=== PATIENT | female | born 1955 | race Hispanic/Latino ===

== ENCOUNTER 2017-04-28 05:43 | Inpatient (IN) | payer OTHER ==
[~2017-04-28] VITALS: Ht 162.6 cm; Wt 87.6 kg
[~2017-04-28 05:43] MED LIST: CYCLOBENZAPRINE5 MG PO; DEXILANT30 MG PO
[2017-04-28] MEDS ORDERED: ONDANSETRON HCL INJ 2 MG/ML VIAL IV STA (06:21)
[2017-04-28] MEDS ORDERED: SODIUM CHLORIDE 0.9% 1000ML 1,000 ML IV STA (06:21)
[2017-04-28] MEDS ORDERED: PANTOPRAZOLE 40 MG 10ML VIAL IV STA (06:21)
[2017-04-28] MEDS ORDERED: MORPHINE SULFATE 2 MG/ML SYR IV STA (06:49)
[2017-04-28] MEDS ORDERED: MORPHINE SULFATE 5 MG/ML VIAL IV ONE (07:00)
[2017-04-28 07:16] LABS: BASOPHILS % 0.4 % (0.0-1.0); EOSINOPHILS # (AUTO) 0.1 (0.0-0.4); EOSINOPHILS % 1.2 % (0.0-6.0); HEMATOCRIT 40.5 % (34.2-44.1); HEMOGLOBIN 14.3 g/dL (12.0-16.0); LYMPHOCYTES % 12.1 % (18.0-39.1); MEAN CORPUSCULAR HEMOGLOBIN 28.5 pg (28-32); MEAN CORPUSCULAR HGB CONC 35.3 g/dL (31-35); MEAN CORPUSCULAR VOLUME 80.8 fL (81-99); MONOCYTES # (AUTO) 0.5 (0.2-0.8); MONOCYTES % 5.5 % (4.4-11.3); NEUTROPHILS # (AUTO) 6.5 (2.1-6.9); NEUTROPHILS % 80.6 % (38.7-80.0); PLATELET COUNT 243 x10e3/uL (140-360); RED BLOOD COUNT 5.01 x10e6/uL (3.6-5.1); RED CELL DISTRIBUTION WIDTH 12.6 % (11.7-14.4)
[2017-04-28 07:19] LABS: INR 0.91; PARTIAL THROMBOPLASTIN TIME 26.5 seconds (23.8-35.5); PROTHROMBIN TIME 12.7 seconds (11.9-14.5)
[2017-04-28 07:27] LABS: ALANINE AMINOTRANSFERASE 26 IU/L (0-55); ALBUMIN 4.1 g/dL (3.5-5.0); ALKALINE PHOSPHATASE 95 IU/L (40-150); AMYLASE 16 U/L (25-125); ANION GAP 16.5 mmol/L (8-16); BLOOD UREA NITROGEN 9 mg/dL (7-26); BUN/CREATININE RATIO 12 (6-25); CARBON DIOXIDE 20 mmol/L (22-29); CHLORIDE 103 mmol/L (98-107); CREATINE KINASE 40 IU/L (29-168); CREATININE, SERUM 0.74 mg/dL (0.57-1.11); EST GLOMERULAR FILTRATION RATE > 60 ML/MIN (60-); GLUCOSE 117 mg/dL (74-118); LIPASE 11 U/L (8-78); POTASSIUM 3.5 mmol/L (3.5-5.1); SODIUM 136 mmol/L (136-145)
[2017-04-28 07:33] LABS: TROPONIN I < 0.001 ng/mL (0-0.300)
[2017-04-28 08:02] LABS: BILIRUBIN,URINE NEGATIVE (NEGATIVE); KETONES,URINE 1+ (NEGATIVE); LEUKOCYTE ESTERASE ,URINE NEGATIVE (NEGATIVE); NITRITE,URINE NEGATIVE (NEGATIVE); PROTEIN,URINE DIPSTICK NEGATIVE (NEGATIVE); URINE UROBILINOGEN 0.2 mg/dL (0.2 - 1)
[2017-04-28 08:04] LABS: CLARITY,URINE CLEAR (CLEAR); COLOR,URINE YELLOW (YELLOW)
[2017-04-28 08:17] LABS: BACTERIA,URINE RARE /HPF; EPITHELIAL CELLS,URINE FEW /LPF; RBC,URINE 0-5 /HPF (0-5); WBC,URINE (MAN) 0-5 /HPF (0-5)
--- NOTE | 2017-04-28 09:02 | Diagnostic Imaging Report ---
PROCEDURE: CT ABDOMEN AND PELVIS WITH CONTRAST TECHNIQUE: The abdomen and pelvis were scanned utilizing a multidetector helical scanner from the diaphragm to the lesser trochanter after the IV administration of 100 cc Isovue 370. Coronal and sagittal multiplanar reformations were obtained. COMPARISON: CT abdomen and pelvis 07/24/2014. INDICATIONS: ABDOMEN PAIN, VOMITING FINDINGS: LOWER THORAX: Subsegmental atelectasis in the dependent portions of the lower lobes.. HEPATOBILIARY: No focal hepatic lesion or intrahepatic biliary ductal dilatation. The gallbladder has been removed. SPLEEN: No splenomegaly. Small splenule adjacent to the posterior splenic margin. PANCREAS: No focal masses or ductal dilatation. ADRENALS: No adrenal nodules. KIDNEYS/URETERS: No hydronephrosis, stones, or solid mass lesions. PELVIC ORGANS/BLADDER: The urinary bladder is unremarkable. The uterus is not identified and has presumably been resected. No adnexal mass. PERITONEUM / RETROPERITONEUM: Small amount of free pelvic fluid versus a small cyst, average attenuation 19 Hounsfield units in the presacral space. This finding is unchanged compared to 07/24/2014. No pneumoperitoneum. LYMPH NODES: No pelvic sidewall, retroperitoneal, or mesenteric lymphadenopathy. Multiple metallic clips along the pelvic sidewalls and lower retroperitoneum may relate to lymph node dissection. VESSELS: The abdominal aorta, major branch vessels, and iliac arterial systems are patent without aneurysmal dilatation. Portal vein, splenic vein, and central superior mesenteric vein are patent. GI TRACT: The large bowel is mostly collapsed and suboptimally evaluated. No gross distention or wall thickening. The appendix is not identified and may have been resected. There is mild wall thickening and mucosal enhancement of the terminal ileum similar to that noted on prior examination. There are multiple dilated loops of small bowel predominately in the lower abdomen to a maximum caliber of 3.5 cm, with a transition point in the ileum at the level of a 1.5 cm apparent intraluminal metallic foreign body seen on series 2 image 71, and coronal image 44. No pneumoperitoneum. BONES AND SOFT TISSUES: No focal soft tissue abnormalities with the exception of postsurgical changes of the lower anterior abdominal wall. Multilevel degenerative disc disease and degenerative facet arthropathy of the lumbar spine. IMPRESSION: Findings suggest partial small bowel obstruction related to an apparent intraluminal metallic foreign body at the level of the distal ileum. No adi pneumoperitoneum. Terminal ileitis is similar to that noted on the comparison examination from 07/24/2014 Dictated by: Robert Norris M.D. on 04/28/2017 at 9:09 Electronically approved by: Roebrt Norris M.D. on 04/28/2017 at 9:09
[2017-04-28] MEDS ORDERED: ONDANSETRON HCL INJ 2 MG/ML VIAL IV PRN (10:00)
[2017-04-28] MEDS ORDERED: MORPHINE SULFATE 2 MG/ML SYR IV PRN (10:00)
[2017-04-28] MEDS ORDERED: LEVOFLOXACIN 500MG/D5W 100ML IV SCH (10:00)
[2017-04-28] MEDS: D5.45%NS/KCL 20MEQ 1,000 ML IV SCH ×3 (10:34→21:51)
[2017-04-28] MEDS: LEVOFLOXACIN 500MG/D5W 100ML 100 ML IV SCH (10:34)
[2017-04-28] MEDS ORDERED: METRONIDAZOLE 500MG/NS 100ML IV SCH (12:00)
[2017-04-28] MEDS: METRONIDAZOLE 500MG/NS 100ML 100 ML IV SCH ×2 (12:14→17:09)
--- NOTE | 2017-04-28 14:18 | Diagnostic Imaging Report ---
PROCEDURE:ABDOMEN COMP INCL UPR OR DECUB INDICATION:Abdominal pain COMPARISON:CT abdomen and pelvis with contrast earlier 04/28/2017. FINDINGS: Dilated loops of small bowel, air-filled, are identified in the mid abdomen measuring up to 3.5 cm. Several air-fluid levels are noted on the upright radiograph. No free air under the diaphragm. Interval placement of an enteric tube, with the tip projecting over the proximal gastric body. 1.7 cm linear metallic density projecting to the right side of the lower sacrum likely represents the intraluminal metallic foreign body described on the comparison CT. Multiple pelvic and retroperitoneal surgical clips likely related to lymph node dissection. Excreted intravenous contrast material opacifies the upper collecting systems and urinary bladder. Regional skeletal structures are intact. CONCLUSION: Interval placement of an enteric tube, with the tip projecting over the expected region of the proximal gastric body. Dilated loops of small bowel with suspected intraluminal metallic foreign body in the ileum, seen to better advantage and further described on comparison CT from earlier 04/28/2017. No pneumoperitoneum. Dictated by: Robert Norris M.D. on 04/28/2017 at 14:26 Electronically approved by: Robert Norris M.D. on 04/28/2017 at 14:26
[2017-04-28 14:53] VITALS: BP 132/60
[2017-04-28] MEDS ORDERED: SODIUM CHLORIDE 0.9% 50ML 50 ML ONE (15:25)
[2017-04-28 15:34] VITALS: BP 132/60
[2017-04-28 16:32] VITALS: BP 107/51
[2017-04-28] MEDS: PANTOPRAZOLE 40 MG 10ML VIAL IV SCH (17:08)
[2017-04-28] MEDS ORDERED: MORPHINE SULFATE 5 MG/ML VIAL IV PRN (18:45)
[2017-04-28 20:00] VITALS: BP 115/58
[2017-04-29] VITALS: BP 134/63
[2017-04-29] MEDS: METRONIDAZOLE 500MG/NS 100ML 100 ML IV SCH ×4 (00:20→17:21)
[2017-04-29] MEDS: D5.45%NS/KCL 20MEQ 1,000 ML IV SCH ×3 (01:57→19:57)
[2017-04-29 04:00] VITALS: BP 137/63
[2017-04-29 07:08] LABS: BASOPHILS # (AUTO) 0.1 (0.0-0.1); BASOPHILS % 0.5 % (0.0-1.0); EOSINOPHILS # (AUTO) 0.1 (0.0-0.4); EOSINOPHILS % 1.4 % (0.0-6.0); HEMATOCRIT 43.7 % (34.2-44.1); HEMOGLOBIN 14.3 g/dL (12.0-16.0); LYMPHOCYTES # (AUTO) 0.8 (1.0-3.2); LYMPHOCYTES % 8.3 % (18.0-39.1); MEAN CORPUSCULAR HEMOGLOBIN 28.5 pg (28-32); MEAN CORPUSCULAR HGB CONC 32.7 g/dL (31-35); MEAN CORPUSCULAR VOLUME 87.2 fL (81-99); MONOCYTES # (AUTO) 0.5 (0.2-0.8); NEUTROPHILS # (AUTO) 8.2 (2.1-6.9); NEUTROPHILS % 84.4 % (38.7-80.0); PLATELET COUNT 264 x10e3/uL (140-360); RED BLOOD COUNT 5.01 x10e6/uL (3.6-5.1); RED CELL DISTRIBUTION WIDTH 12.7 % (11.7-14.4)
[2017-04-29 07:44] LABS: ANION GAP 15.1 mmol/L (8-16); BLOOD UREA NITROGEN < 5 mg/dL (7-26); BUN/CREATININE RATIO 8 (6-25); CALCIUM 9.4 mg/dL (8.4-10.2); CARBON DIOXIDE 19 mmol/L (22-29); CHLORIDE 107 mmol/L (98-107); CREATININE, SERUM 0.65 mg/dL (0.57-1.11); EST GLOMERULAR FILTRATION RATE > 60 ML/MIN (60-); GLUCOSE 109 mg/dL (74-118); POTASSIUM 4.1 mmol/L (3.5-5.1); SODIUM 137 mmol/L (136-145)
--- NOTE | 2017-04-29 08:08 | Diagnostic Imaging Report ---
PROCEDURE:ABDOMEN COMP INCL UPR OR DECUB TECHNIQUE: INDICATION: COMPARISON:None. FINDINGS: Enteric feeding catheter is present with the tip projecting over the expected region of the gastric fundus. Surgical clips are present in the right upper quadrant, mid abdomen, and pelvis. Air is present in the colon and rectum. No air-fluid levels or pneumoperitoneum. No abnormal calcifications. Degenerative changes of the lumbar spine. CONCLUSION: No acute radiographic abnormality. Dictated by: Fabián Dominguez M.D. on 04/29/2017 at 8:16 Electronically approved by: Fabián Dominguez M.D. on 04/29/2017 at 8:16
[2017-04-29 08:16] VITALS: BP 140/63
[2017-04-29] MEDS: PANTOPRAZOLE 40 MG 10ML VIAL IV SCH ×2 (08:32→17:21)
[2017-04-29] MEDS ORDERED: ACETAMINOPHEN 1000 MG/100 ML IV PRN (08:45)
[2017-04-29] MEDS: LEVOFLOXACIN 500MG/D5W 100ML 100 ML IV SCH (10:58)
--- NOTE | 2017-04-29 11:26 | Diagnostic Imaging Report ---
PROCEDURE:X-RAY ABDOMEN - KUB COMPARISON:Abdomen complete 04/29/2017 at 0624 hrs.. INDICATIONS:SMALL BOWEL OBSTRUCTION, COMPARE TO MORNING KUB FINDINGS: There is a non-obstructed bowel-gas pattern. Air and retained feces are present in the colon and rectum. Enteric feeding catheter with the tip projecting over the expected region of the gastric fundus. Surgical clips. There are no calcifications projected over the renal shadows, expected course of the ureters or bladder. There are no acute osseous abnormalities. The lung bases are clear. CONCLUSION: No acute radiographic abnormality. Dictated by: Fabián Dominguez M.D. on 04/29/2017 at 11:33 Electronically approved by: Fabián Dominguez M.D. on 04/29/2017 at 11:33
[2017-04-29 12:15] VITALS: BP 103/51
[2017-04-29 16:30] VITALS: BP 113/51
[2017-04-29 20:00] VITALS: BP 108/48
[2017-04-30] VITALS: BP 109/53
[2017-04-30] MEDS: D5.45%NS/KCL 20MEQ 1,000 ML IV SCH ×2 (00:15→17:30)
[2017-04-30] MEDS: METRONIDAZOLE 500MG/NS 100ML 100 ML IV SCH ×5 (00:15→23:01)
[2017-04-30 04:00] VITALS: BP 113/55
[2017-04-30 07:01] LABS: BASOPHILS % 0.6 % (0.0-1.0); EOSINOPHILS # (AUTO) 0.2 (0.0-0.4); EOSINOPHILS % 4.5 % (0.0-6.0); HEMATOCRIT 36.3 % (34.2-44.1); HEMOGLOBIN 12.1 g/dL (12.0-16.0); LYMPHOCYTES # (AUTO) 0.9 (1.0-3.2); LYMPHOCYTES % 20.1 % (18.0-39.1); MEAN CORPUSCULAR HEMOGLOBIN 28.4 pg (28-32); MEAN CORPUSCULAR HGB CONC 33.3 g/dL (31-35); MEAN CORPUSCULAR VOLUME 85.2 fL (81-99); MONOCYTES # (AUTO) 0.4 (0.2-0.8); MONOCYTES % 8.1 % (4.4-11.3); NEUTROPHILS # (AUTO) 3.1 (2.1-6.9); NEUTROPHILS % 66.3 % (38.7-80.0); PLATELET COUNT 259 x10e3/uL (140-360); RED BLOOD COUNT 4.26 x10e6/uL (3.6-5.1); RED CELL DISTRIBUTION WIDTH 12.7 % (11.7-14.4)
[2017-04-30 07:19] LABS: ANION GAP 11.7 mmol/L (8-16); BLOOD UREA NITROGEN < 5 mg/dL (7-26); CALCIUM 9.1 mg/dL (8.4-10.2); CARBON DIOXIDE 23 mmol/L (22-29); CHLORIDE 109 mmol/L (98-107); EST GLOMERULAR FILTRATION RATE > 60 ML/MIN (60-); GLUCOSE 95 mg/dL (74-118); POTASSIUM 3.7 mmol/L (3.5-5.1); SODIUM 140 mmol/L (136-145)
[2017-04-30 07:20] LABS: BUN/CREATININE RATIO 7 (6-25)
[2017-04-30] MEDS: PANTOPRAZOLE 40 MG 10ML VIAL IV SCH ×2 (08:01→16:45)
--- NOTE | 2017-04-30 08:48 | Diagnostic Imaging Report ---
PROCEDURE:X-RAY ABDOMEN - KUB COMPARISON:None. INDICATIONS:OBSTRUCTION-FOLLOW UP FINDINGS: There are no dilated loops of bowel to suggest obstruction. There are no masses or abnormal calcifications. Multiple surgical clips present within the abdomen and pelvis. There is no evidence of free air. No acute osseous abnormalities are present. CONCLUSION: No acute abdominal abnormality. Ronen Dennis D.O. Dictated by: Ronen Dennis D.O. on 04/30/2017 at 8:55 Electronically approved by: Ronen Dennis D.O. on 04/30/2017 at 8:55
[2017-04-30 08:49] VITALS: BP 116/56
[2017-04-30] MEDS: LEVOFLOXACIN 500MG/D5W 100ML 100 ML IV SCH (09:14)
[2017-04-30 12:52] VITALS: BP 113/64
[2017-04-30 16:15] VITALS: BP 114/53
[2017-04-30 20:00] VITALS: BP 125/56
[2017-05-01] VITALS: BP 123/63
[2017-05-01] MEDS: D5.45%NS/KCL 20MEQ 1,000 ML IV SCH (01:57)
[2017-05-01 04:00] VITALS: BP 99/55
[2017-05-01] MEDS: METRONIDAZOLE 500MG/NS 100ML 100 ML IV SCH ×2 (05:17→12:15)
[2017-05-01] MEDS: PANTOPRAZOLE 40 MG 10ML VIAL IV SCH (09:00)
[2017-05-01 09:23] VITALS: BP 92/45
[2017-05-01] MEDS: LEVOFLOXACIN 500MG/D5W 100ML 100 ML IV SCH (10:15)
[2017-05-01 13:13] VITALS: BP 125/62
[2017-05-01] MEDS ORDERED: SENNA LAX8.6 MG PO (16:28)
[2017-05-01] MEDS ORDERED: ZOFRAN ODT4 MG SL (16:28)
[2017-05-01] MEDS ORDERED: OMEPRAZOLE40 MG PO (16:29)
--- NOTE | 2017-05-02 19:36 | Discharge Summary ---
PRIMARY CARE PHYSICIAN: Dr. Tamara Adames. CONSULTANTS: Dr. Jasiel Harris and Dr. Jorden Rodriguez. FINAL DIAGNOSES: 1. Small bowel obstruction most likely secondary to scar in the abdomen with adhesion. 2. Baseline history of hysterectomy, appendectomy and cholecystectomy. SUMMARY: Patient is a 61-year-old female with recurrent abdominal pain since January. She came in and shown to have ileus and partial small bowel obstruction. The area is at the level of the terminal ileum. Patient did have nasogastric tube. The NG tube has since been removed. KUB repeated x-ray showed no bowel obstruction at this time. She tolerated a full liquid diet. Patient is stable. Advance to soft solid food today. If the patient is stable, she may be able to go home. She will go home with Senna 1 tablet twice a day and omeprazole 40 mg q.a.m. along with Zofran ODT 4 mg sublingual as needed. The patient is instructed to follow up with Dr. Jasiel Harris and Dr. Jorden Rodriguez as an outpatient. The patient will most likely need a diagnostic laparoscopy with lysis of adhesions in the future. Patient is otherwise stable and discharged home today. Job#: [id number]
== END 2017-05-01 16:40 | disposition home or self-care (01) | DRG 390 ==
LOC: ER 05:43 → ERHOLD 10:10 → UNDOADMIN 10:10 → ERHOLD 10:11 → MED/SURG 13:48
PROVIDERS: ADMIT Internal Medicine; ATTEND Internal Medicine
DX: K56.50 Intestinal adhesions [bands], unspecified as to partial versus complete obstruction (principal); R13.10 Dysphagia, unspecified; K56.7 Ileus, unspecified; E66.9 Obesity, unspecified; Z68.33 Body mass index [BMI] 33.0-33.9, adult; Z90.49 Acquired absence of other specified parts of digestive tract; Z90.710 Acquired absence of both cervix and uterus; K21.9 Gastro-esophageal reflux disease without esophagitis
CPT/HCPCS: 36415; 74000; 74020; 74177; 80048; 80053; 81001; 82150; 82550; 82553; 83605; 83690; 83735; 84484; 85025; 85610; 85730; 87086; 93005; 96360; 96361; 96374; 96376; 99284; J1956; J2270; J2405; J7030

== ENCOUNTER 2021-06-27 18:09 | Emergency (ER) | payer MEDICARE, OTHER ==
[~2021-06-27] VITALS: Ht 162.6 cm; Wt 87.5 kg
[~2021-06-27 18:09] MED LIST changes: +OMEPRAZOLE40 MG PO; +SENNA LAX8.6 MG PO; +ZOFRAN ODT4 MG SL
[2021-06-27] MEDS ORDERED: KETOROLAC TROMETHAMINE 30 MG/ML VIAL IV STA (18:34)
[2021-06-27 18:43] LABS: BASOPHILS % 0.7 % (0.0-1.0); EOSINOPHILS # (AUTO) 0.3 (0.0-0.4); EOSINOPHILS % 5.2 % (0.0-6.0); HEMATOCRIT 39.3 % (34.2-44.1); HEMOGLOBIN 12.6 g/dL (12.0-16.0); LYMPHOCYTES % 17.6 % (18.0-39.1); MEAN CORPUSCULAR HGB CONC 32.1 g/dL (31-35); MEAN CORPUSCULAR VOLUME 87.3 fL (81-99); MONOCYTES # (AUTO) 0.5 (0.2-0.8); MONOCYTES % 7.9 % (4.4-11.3); NEUTROPHILS # (AUTO) 3.9 (2.1-6.9); NEUTROPHILS % 68.3 % (38.7-80.0); PLATELET COUNT 222 x10e3/uL (140-360); RED CELL DISTRIBUTION WIDTH 14.1 % (11.7-14.4)
[2021-06-27 19:02] LABS: ALANINE AMINOTRANSFERASE 28 IU/L (0-55); ALBUMIN 3.7 g/dL (3.5-5.0); ALBUMIN/GLOBULIN RATIO 0.9 (0.8-2.0); ALKALINE PHOSPHATASE 78 IU/L (40-150); ANION GAP 14.2 mmol/L (8-16); BLOOD UREA NITROGEN 11 mg/dL (7-26); BUN/CREATININE RATIO 15 (6-25); CALCIUM 9.6 mg/dL (8.4-10.2); CARBON DIOXIDE 22 mmol/L (22-29); CHLORIDE 110 mmol/L (98-107); CREATINE KINASE 66 IU/L (29-168); CREATININE, SERUM 0.71 mg/dL (0.57-1.11); EST GLOMERULAR FILTRATION RATE 83 ML/MIN (60-); GLUCOSE 112 mg/dL (74-118); POTASSIUM 4.2 mmol/L (3.5-5.1); SODIUM 142 mmol/L (136-145)
[2021-06-27] MEDS ORDERED: ACETAMINOPHEN-1 EAC4 PO (19:35)
== END 2021-06-27 19:38 | disposition home or self-care (01) ==
LOC: ER 18:21
DX: R07.89 Other chest pain (principal); M79.632 Pain in left forearm; Z86.16 Personal history of COVID-19; Z85.41 Personal history of malignant neoplasm of cervix uteri
CPT/HCPCS: 36415; 71045; 73090; 80053; 82550; 82553; 83880; 84484; 85025; 85379; 93005; 99284; J1885

== ENCOUNTER → 2022-12-12 | Outpatient (CLI) | payer MEDICARE ==
[~2022-12-12] MED LIST changes: +ACETAMINOPHEN-1 EAC4 PO
== END ==
LOC: MAMMO 08:22
PROVIDERS: ATTEND Nurse Practitioner Gerontology
DX: Z12.31 Encounter for screening mammogram for malignant neoplasm of breast (principal); Z13.820 Encounter for screening for osteoporosis; M81.0 Age-related osteoporosis without current pathological fracture
CPT/HCPCS: 77067; 77080

== ENCOUNTER 2024-06-03 22:48 | Emergency (ER) | payer OTHER ==
[~2024-06-03 22:48] MED LIST changes: +ATORVASTATIN CA10 MG PO; +LEVOTHYROXINE50 MCG PO; +NEXIUM20 MG PO; +SENOKOT-S TABL1 EACH PO; +no home meds
== END 2024-06-03 23:00 | disposition left against medical advice (07) ==
LOC: ER 22:56
DX: R03.0 Elevated blood-pressure reading, without diagnosis of hypertension (principal)

== ENCOUNTER 2024-10-12 13:37 | Inpatient (IN) | payer MEDICARE, OTHER ==
[~2024-10-12] VITALS: Ht 157.5 cm; Wt 87.5 kg
[2024-10-12 14:47] LABS: BASOPHILS % 0.3 % (0.0-1.0); HEMATOCRIT 40.6 % (34.2-44.1); LYMPHOCYTES # (AUTO) 0.5 (1.0-3.2); LYMPHOCYTES % 6.8 % (18.0-39.1); MEAN CORPUSCULAR HGB CONC 34.5 g/dL (31-35); MEAN CORPUSCULAR VOLUME 84.2 fL (81-99); MONOCYTES # (AUTO) 0.2 (0.2-0.8); MONOCYTES % 3.3 % (4.4-11.3); NEUTROPHILS # (AUTO) 6.3 (2.1-6.9); PLATELET COUNT 327 x10e3/uL (140-360); RED BLOOD COUNT 4.82 x10e6/uL (3.6-5.1); RED CELL DISTRIBUTION WIDTH 13.1 % (11.7-14.4); WHITE BLOOD COUNT 7.04 x10e3/uL (4.8-10.8)
[2024-10-12] MEDS ORDERED: DICYCLOMINE HCL20 MG PO (14:56)
[2024-10-12] MEDS ORDERED: LISINOPRIL10 MG PO (14:56)
[2024-10-12 14:59] LABS: BILIRUBIN,TOTAL 0.8 mg/dL (0.2-1.2); CALCIUM 9.6 mg/dL (8.4-10.2); CREATININE, SERUM 0.73 mg/dL (0.57-1.11); MAGNESIUM 1.8 MG/DL (1.3-2.1); TOTAL PROTEIN 8.2 g/dL (6.5-8.1)
[2024-10-12] MEDS ORDERED: IOPAMIDOL 370 MG/ML 100 ML INFUS..BTL INJ ONE (15:03)
[2024-10-12 15:05] LABS: INR 1.02; PROTHROMBIN TIME 14.3 seconds (11.9-14.5); TROPONIN I 0.001 ng/mL (0-0.300)
[2024-10-12 15:06] LABS: PARTIAL THROMBOPLASTIN TIME 27.3 seconds (23.8-35.5)
[2024-10-12] MEDS: ONDANSETRON HCL INJ 2MG/ML 2ML 2 MG/ML VIAL IV STA (15:21)
[2024-10-12] MEDS: SODIUM CHLORIDE 0.9% 1000ML 1,000 ML IV STA (15:23)
[2024-10-12] MEDS ORDERED: Morphine 2mg Syringe 2 MG/ML SYR IV PRN (18:30)
[2024-10-12] MEDS ORDERED: ONDANSETRON HCL INJ 2MG/ML 2ML 2 MG/ML VIAL IV PRN (18:30)
[2024-10-12] MEDS: METHYLPREDNISOLONE SOD SUCC 125 MG/2ML VIAL IV STA (19:37)
[2024-10-12] MEDS: SODIUM CHLORIDE 0.9% 1000ML 1,000 ML IV SCH (19:37)
[2024-10-12 19:56] VITALS: PULSE 71; RESP 18; TEMP 98.9
[2024-10-12 20:00] VITALS: BP 128/69; PULSE 75; RESP 18; TEMP 98.2; O2SAT 100
[2024-10-12 22:45] VITALS: BP 128/69; PULSE 75; RESP 18; TEMP 98.2; O2SAT 100
[2024-10-12 22:55] VITALS: BP 128/69; PULSE 75; RESP 18; TEMP 98.2; O2SAT 100
[2024-10-12] MEDS: METOCLOPRAMIDE HCL 10 MG/2ML VIAL IV SCH (23:40)
[2024-10-12] MEDS: METHYLPREDNISOLONE SOD SUCC 40 MG/ML VIAL 1ML IV SCH (23:42)
[2024-10-13] VITALS (9 sets, daily range): BP systolic 129–150; BP diastolic 53–70; PULSE 70–86; RESP 16–20; TEMP 97.6–98.3; O2SAT 96–100
[2024-10-13 05:43] LABS: HEMATOCRIT 35.7 % (34.2-44.1); HEMOGLOBIN 12.1 g/dL (12.0-16.0); LYMPHOCYTES # (AUTO) 0.5 (1.0-3.2); LYMPHOCYTES % 7.1 % (18.0-39.1); MEAN CORPUSCULAR HGB CONC 33.9 g/dL (31-35); MEAN CORPUSCULAR VOLUME 85.6 fL (81-99); MONOCYTES % 0.5 % (4.4-11.3); NEUTROPHILS % 91.8 % (38.7-80.0); PLATELET COUNT 274 x10e3/uL (140-360); RED BLOOD COUNT 4.17 x10e6/uL (3.6-5.1); RED CELL DISTRIBUTION WIDTH 13.4 % (11.7-14.4)
[2024-10-13 06:08] LABS: ALBUMIN 3.4 g/dL (3.5-5.0); ALBUMIN/GLOBULIN RATIO 0.9 (0.8-2.0); ANION GAP 12.6 mmol/L (8-16); BILIRUBIN,TOTAL 0.7 mg/dL (0.2-1.2); CALCIUM 8.6 mg/dL (8.4-10.2); CREATININE, SERUM 0.69 mg/dL (0.57-1.11); POTASSIUM 3.6 mmol/L (3.5-5.1)
[2024-10-13 08:03] LABS: LYMPHOCYTES % (MANUAL) 4 % (19-48); MONOCYTES % (MANUAL) 1 % (3.4-9.0); NEUTROPHILS % (MANUAL) 95 % (40-74); PLATELET ESTIMATE ADEQUATE; PLATELET MORPHOLOGY COMMENT NORMAL; RBC MORPHOLOGY COMMENT NORMAL
[2024-10-13] MEDS ORDERED: LIDOCAINE 4% PATCH TP PRN (14:30)
[2024-10-13] MEDS ORDERED: DEXTROSE 50% SYRINGE 50 ML IV PRN (14:30)
[2024-10-13] MEDS ORDERED: HYDRALAZINE HCL 20 MG/ML VIAL IV PRN (14:30)
[2024-10-13] MEDS ORDERED: DOCUSATE SODIUM 100 MG CAP PO PRN (14:30)
[2024-10-13] MEDS ORDERED: POTASSIUM CHLORIDE 20 MEQ TAB CR PO PRN (14:30)
[2024-10-13] MEDS ORDERED: DIPHENHYDRAMINE HCL 25 MG CAP PO PRN (14:30)
[2024-10-13] MEDS ORDERED: ALBUTEROL/IPRATROPIUM 3 ML NEB NEB PRN (14:30)
[2024-10-13] MEDS ORDERED: BENZONATATE 100 MG CAP PO PRN (14:30)
[2024-10-13] MEDS: D5NS/KCL 20MEQ 1,000 ML IV SCH (17:34)
[2024-10-13] MEDS: ENOXAPARIN SOD INJ 40 MG/0.4 ML SYR SC SCH (17:36)
[2024-10-13] MEDS: ACETAMINOPHEN 325 MG TAB PO PRN (23:59)
[2024-10-14] VITALS (11 sets, daily range): BP systolic 120–163; BP diastolic 51–71; PULSE 50–85; RESP 16–20; TEMP 97.5–98.1; O2SAT 96–100
[2024-10-14 03:23] LABS: WBC,FECAL (FECAL LACTOFERRIN) POSITIVE (NEGATIVE)
[2024-10-14 03:26] LABS: CDIFF AG QUIK CHEK NEGATIVE (NEGATIVE); CDIFF TOX QUIK CHEK NEGATIVE (NEGATIVE)
[2024-10-14 04:50] LABS: BASOPHILS % 0.1 % (0.0-1.0); HEMATOCRIT 34.3 % (34.2-44.1); HEMOGLOBIN 11.4 g/dL (12.0-16.0); LYMPHOCYTES # (AUTO) 0.6 (1.0-3.2); LYMPHOCYTES % 6.6 % (18.0-39.1); MEAN CORPUSCULAR HEMOGLOBIN 28.9 pg (28-32); MEAN CORPUSCULAR HGB CONC 33.2 g/dL (31-35); MEAN CORPUSCULAR VOLUME 86.8 fL (81-99); MONOCYTES # (AUTO) 0.4 (0.2-0.8); MONOCYTES % 3.8 % (4.4-11.3); NEUTROPHILS # (AUTO) 8.1 (2.1-6.9); NEUTROPHILS % 89.1 % (38.7-80.0); PLATELET COUNT 221 x10e3/uL (140-360); RED BLOOD COUNT 3.95 x10e6/uL (3.6-5.1); RED CELL DISTRIBUTION WIDTH 13.5 % (11.7-14.4); WHITE BLOOD COUNT 9.11 x10e3/uL (4.8-10.8)
[2024-10-14 05:18] LABS: ANION GAP 12.7 mmol/L (8-16); CALCIUM 8.5 mg/dL (8.4-10.2); CREATININE, SERUM 0.7 mg/dL (0.57-1.11); MAGNESIUM 1.9 MG/DL (1.3-2.1); PHOSPHORUS 2.2 MG/DL (2.3-4.7); POTASSIUM 3.7 mmol/L (3.5-5.1)
[2024-10-14] MEDS: LEVOTHYROXINE SODIUM 50 MCG TAB PO SCH (05:37)
[2024-10-14 05:42] LABS: THYROID STIMULATING HORMONE 0.418 uIU/mL (0.350-4.940)
[2024-10-14] MEDS ORDERED: PANTOPRAZOLE SOD 40 MG TABEC PO SCH (07:30)
[2024-10-14] MEDS: SIMETHICONE 80 MG CHEW PO PRN (08:43)
[2024-10-14] MEDS: POTASSIUM PHOSPHATE 15 MM in SODIUM CHLORIDE 0.9% 250ML 250 ML IV SCH (16:17)
[2024-10-14] MEDS: MELATONIN 5 MG TABLET PO PRN (20:49)
[2024-10-15 03:49] VITALS: BP 151/62; PULSE 54; RESP 17; TEMP 98.2
[2024-10-15 07:21] LABS: HEMATOCRIT 34.8 % (34.2-44.1); LYMPHOCYTES # (AUTO) 0.6 (1.0-3.2); LYMPHOCYTES % 8.4 % (18.0-39.1); MEAN CORPUSCULAR HEMOGLOBIN 29.2 pg (28-32); MEAN CORPUSCULAR HGB CONC 34.5 g/dL (31-35); MEAN CORPUSCULAR VOLUME 84.7 fL (81-99); MONOCYTES # (AUTO) 0.2 (0.2-0.8); MONOCYTES % 3.5 % (4.4-11.3); NEUTROPHILS # (AUTO) 5.7 (2.1-6.9); NEUTROPHILS % 86.6 % (38.7-80.0); PLATELET COUNT 238 x10e3/uL (140-360); RED BLOOD COUNT 4.11 x10e6/uL (3.6-5.1); RED CELL DISTRIBUTION WIDTH 13.7 % (11.7-14.4); WHITE BLOOD COUNT 6.57 x10e3/uL (4.8-10.8)
[2024-10-15 07:32] LABS: ANION GAP 13.7 mmol/L (8-16); CALCIUM 8.7 mg/dL (8.4-10.2); CREATININE, SERUM 0.69 mg/dL (0.57-1.11); PHOSPHORUS 3.6 MG/DL (2.3-4.7); POTASSIUM 3.7 mmol/L (3.5-5.1)
[2024-10-15 07:42] VITALS: PULSE 86; RESP 16; O2SAT 97
[2024-10-15 08:57] VITALS: BP 156/72; PULSE 57; RESP 20; TEMP 98.4; O2SAT 98
[2024-10-15 10:50] VITALS: BP 156/72; PULSE 57; RESP 20; TEMP 98.4; O2SAT 98
[2024-10-15 13:22] VITALS: BP 152/84; PULSE 56; RESP 20; TEMP 98.1; O2SAT 99
[2024-10-15 13:50] VITALS: PULSE 83; RESP 16; O2SAT 95
== END 2024-10-15 16:15 | disposition home or self-care (01) | DRG 386 ==
LOC: ER 14:35 → ERHOLD 18:28 → MED/SURG 20:21
PROVIDERS: ADMIT Internal Medicine; ATTEND Internal Medicine
DX: K50.012 Crohn's disease of small intestine with intestinal obstruction (principal); K56.699 Other intestinal obstruction unspecified as to partial versus complete obstruction; K76.0 Fatty (change of) liver, not elsewhere classified; I10 Essential (primary) hypertension; R11.2 Nausea with vomiting, unspecified; I72.8 Aneurysm of other specified arteries; E03.9 Hypothyroidism, unspecified; K21.9 Gastro-esophageal reflux disease without esophagitis; R19.7 Diarrhea, unspecified; Z79.890 Hormone replacement therapy; Z90.49 Acquired absence of other specified parts of digestive tract; Z85.41 Personal history of malignant neoplasm of cervix uteri; Z92.3 Personal history of irradiation
CPT/HCPCS: 36415; 71045; 74019; 74177; 80048; 80053; 82550; 83036; 83630; 83690; 83735; 83993; 84100; 84443; 84484; 85025; 85610; 85730; 86140; 87045; 87177; 87324; 87449; 93005; 94799; 99284; J1650; J2405; J2470; J2543; J2765; J2919; J7030; J7050; Q9967

== ENCOUNTER 2025-01-11 03:59 | Inpatient (IN) | payer MEDICARE ==
[~2025-01-11] VITALS: Ht 162.6 cm; Wt 83.9 kg
[~2025-01-11 03:59] MED LIST changes: +DICYCLOMINE HCL20 MG PO; +LISINOPRIL10 MG PO
[2025-01-11 04:00] VITALS: TEMP 97.9
[2025-01-11] MEDS: ONDANSETRON HCL INJ 2MG/ML 2ML 2 MG/ML VIAL IV STA (04:13)
[2025-01-11] MEDS: SODIUM CHLORIDE 0.9% 1000ML 1,000 ML IV ONE (04:14)
[2025-01-11] MEDS: Morphine 4mg INJECTION 4 MG/ML INJ IV ONE (04:14)
[2025-01-11 04:26] LABS: BASOPHILS % 0.5 % (0.0-1.0); EOSINOPHILS % 2.1 % (0.0-6.0); LYMPHOCYTES % 23.6 % (18.0-39.1); MONOCYTES % 6.3 % (4.4-11.3); NEUTROPHILS % 67.2 % (38.7-80.0); RED CELL DISTRIBUTION WIDTH 13.2 % (11.7-14.4)
[2025-01-11 04:41] LABS: EST GLOMERULAR FILTRATION RATE 85.0 ML/MIN (>=60)
[2025-01-11] MEDS ORDERED: IOPAMIDOL 370 MG/ML 100 ML INFUS..BTL INJ ONE (04:51)
[2025-01-11 05:26] VITALS: PULSE 78; RESP 20
[2025-01-11 06:35] LABS: LEUKOCYTE ESTERASE ,URINE NEGATIVE (NEGATIVE); PROTEIN,URINE DIPSTICK NEGATIVE (NEGATIVE); URINE UROBILINOGEN 0.2 mg/dL (0.2 - 1)
[2025-01-11] MEDS ORDERED: SODIUM CHLORIDE 0.9% 1000ML 1,000 ML IV SCH (07:15)
[2025-01-11] MEDS ORDERED: Morphine 2mg Syringe 2 MG/ML SYR IV PRN (07:15)
[2025-01-11] MEDS: SODIUM CHLORIDE 0.9% 250ML IRRIG IR SCH (07:15)
[2025-01-11 07:16] LABS: EPITHELIAL CELLS,URINE RARE /LPF; WBC,URINE (MAN) 0-5 /HPF (0-5)
[2025-01-11 08:42] VITALS: BP 162/65; PULSE 85; RESP 18; TEMP 97; O2SAT 98
[2025-01-11] MEDS ORDERED: HYDRALAZINE HCL 20 MG/ML VIAL IV PRN (08:45)
[2025-01-11] MEDS: KCL 40MEQ/0.9% SOD CHL 1,000 ML IV SCH (10:48)
[2025-01-11] MEDS: METRONIDAZOLE 500MG/NS 100ML 100 ML IV SCH (10:49)
[2025-01-11] MEDS ORDERED: OMEPRAZOLE40 MG PO (10:54)
[2025-01-11] MEDS: Morphine 4mg INJECTION 4 MG/ML INJ IV PRN (12:35)
[2025-01-11] MEDS: ONDANSETRON HCL INJ 2MG/ML 2ML 2 MG/ML VIAL IV PRN (12:35)
[2025-01-11] MEDS: SODIUM CHLORIDE 0.9% 250ML 500 ML ONE (12:36)
[2025-01-11 12:46] VITALS: BP 177/74; PULSE 98; RESP 18; TEMP 97.2; O2SAT 100
[2025-01-11 16:18] VITALS: BP 135/57; PULSE 76; RESP 18; TEMP 97.2; O2SAT 98
[2025-01-11 20:00] VITALS: BP 134/53; PULSE 71; RESP 18; TEMP 98.1; O2SAT 100
[2025-01-12] VITALS (7 sets, daily range): BP systolic 109–145; BP diastolic 47–66; PULSE 66–72; RESP 18–20; TEMP 97.7–98.2; O2SAT 98–100
[2025-01-12] MEDS: METOCLOPRAMIDE HCL 10 MG/2ML VIAL IV SCH (01:02)
[2025-01-12] MEDS: LEVOTHYROXINE SODIUM 50 MCG TAB PO SCH (05:25)
[2025-01-12 06:28] LABS: BASOPHILS % 0.4 % (0.0-1.0); EOSINOPHILS % 2.2 % (0.0-6.0); LYMPHOCYTES % 19.8 % (18.0-39.1); MONOCYTES % 9.6 % (4.4-11.3); NEUTROPHILS % 67.8 % (38.7-80.0); RED CELL DISTRIBUTION WIDTH 13.5 % (11.7-14.4)
[2025-01-12 06:53] LABS: PHOSPHORUS 2.6 MG/DL (2.3-4.7)
[2025-01-12 06:55] LABS: EST GLOMERULAR FILTRATION RATE 98.0 ML/MIN (>=60)
[2025-01-13] VITALS (7 sets, daily range): BP systolic 131–154; BP diastolic 60–73; PULSE 65–79; RESP 17–19; TEMP 97.5–98.1; O2SAT 97–98
[2025-01-13] MEDS ORDERED: PROPOFOL IV EMULSION 10 MG/ML 20 ML VIAL ONE ×2 (12:28→14:02)
[2025-01-13] MEDS ORDERED: ROCURONIUM BROMIDE 1 ML IV ONE (12:28)
[2025-01-13] MEDS ORDERED: LIDOCAINE HCL 2% LOCAL INJ 5 ML SDV VIAL INJ ONE (12:35)
[2025-01-13] MEDS ORDERED: FENTANYL CITRATE/PF 100MCG/2 ML INJ ONE ×2 (12:35→16:17)
[2025-01-13] MEDS ORDERED: SEVOFLURANE INHAL SOLN 250 ML PEN BTL ONE (12:36)
[2025-01-13] MEDS ORDERED: SODIUM CHLORIDE 0.9% INJ 10 ML VIAL ONE (12:37)
[2025-01-13] MEDS ORDERED: MIDAZOLAM HCL 2 MG/2 ML VIAL ONE (14:02)
[2025-01-13] MEDS ORDERED: KETOROLAC TROMETHAMINE 30 MG/ML VIAL ONE (15:04)
[2025-01-13] MEDS ORDERED: DEXAMETHASONE SOD PHOS INJ 4 MG/ML SDV ONE (15:04)
[2025-01-13] MEDS ORDERED: METOCLOPRAMIDE HCL 10 MG/2ML VIAL ONE (15:04)
[2025-01-13] MEDS ORDERED: ACETAMINOPHEN 1000 MG/100 ML 100 ML IV ONE (15:18)
[2025-01-13] MEDS ORDERED: ONDANSETRON HCL INJ 2MG/ML 2ML 2 MG/ML VIAL ONE (15:22)
[2025-01-13] MEDS ORDERED: NEOSTIGMINE 1 MG/ML 10ML VIAL ONE (16:12)
[2025-01-13] MEDS ORDERED: GLYCOPYRROLATE INJ 0.2 MG/ML VIAL ONE (16:12)
[2025-01-14] VITALS (7 sets, daily range): BP systolic 110–146; BP diastolic 52–76; PULSE 68–81; RESP 18–20; TEMP 97.1–98.1; O2SAT 95–99
[2025-01-14 06:54] LABS: BASOPHILS % 0.2 % (0.0-1.0); EOSINOPHILS % 0.0 % (0.0-6.0); LYMPHOCYTES % 7.8 % (18.0-39.1); MONOCYTES % 2.0 % (4.4-11.3); NEUTROPHILS % 89.6 % (38.7-80.0); RED CELL DISTRIBUTION WIDTH 13.2 % (11.7-14.4)
[2025-01-14 07:41] LABS: EST GLOMERULAR FILTRATION RATE 96.0 ML/MIN (>=60)
[2025-01-15 03:15] VITALS: BP 108/50; PULSE 75; RESP 18; TEMP 98; O2SAT 99
[2025-01-15 08:00] VITALS: BP 108/50; PULSE 75; RESP 18; TEMP 98; O2SAT 99
[2025-01-15 08:20] VITALS: BP 133/64; PULSE 73; RESP 18; TEMP 98.1; O2SAT 100
[2025-01-15 11:40] VITALS: BP 120/66; PULSE 69; RESP 18; TEMP 97.5; O2SAT 98
== END 2025-01-15 13:55 | disposition home or self-care (01) | DRG 337 ==
LOC: ER 04:04 → ERHOLD 07:08 → MED/SURG3 08:39 → OBSVTOIN 08:46
PROVIDERS: ADMIT Internal Medicine; ATTEND Internal Medicine
PROC: 0DNU4ZZ Release Omentum, Percutaneous Endoscopic Approach (ICD-10-PCS; 2025-01-13)
PROC: 0DN84ZZ Release Small Intestine, Percutaneous Endoscopic Approach (ICD-10-PCS; principal; 2025-01-13 14:53)
DX: K56.690 Other partial intestinal obstruction (principal); K56.51 Intestinal adhesions [bands], with partial obstruction; K21.9 Gastro-esophageal reflux disease without esophagitis; I10 Essential (primary) hypertension; E03.9 Hypothyroidism, unspecified; K59.00 Constipation, unspecified; E66.9 Obesity, unspecified; G89.18 Other acute postprocedural pain; K76.0 Fatty (change of) liver, not elsewhere classified; Z85.41 Personal history of malignant neoplasm of cervix uteri; Z92.3 Personal history of irradiation; Z79.890 Hormone replacement therapy; Z90.710 Acquired absence of both cervix and uterus; Z68.31 Body mass index [BMI] 31.0-31.9, adult
CPT/HCPCS: 36415; 74018; 74177; 80048; 80053; 81001; 83690; 83735; 84100; 84484; 85025; 86140; 93005; 99284; J0690; J0696; J1100; J1885; J2003; J2250; J2270; J2405; J2470; J2710; J2765; J7030; J7050; Q9967